=== PATIENT | male | born 1960 | race Caucasian/White ===

== ENCOUNTER 2019-12-06 10:07 | Inpatient (IN) | payer OTHER, SELFPAY ==
[2019-12-06] VITALS (7 sets, daily range): BP systolic 101–129; BP diastolic 63–74; PULSE 70–82; RESP 18–20; TEMP 36.2–36.7; O2SAT 97–99; BMI 44.2
--- NOTE | ~2019-12-06 | XR_ITS ---
EXAMINATION: XR chest 2V EXAM DATE: 12/06/2019 11:01 INDICATION: Swelling. Weakness. TECHNIQUE: Frontal and lateral projections of the chest obtained and reviewed. There is no prior cheng dy for comparison. FINDINGS: The lungs are clear. There are no pleural effusions. The cardiomediastinal silhouette is within normal limits. There is no pneumothorax suspected. The bones and soft tissues are unremarkab le. IMPRESSION: No acute cardiopulmonary findings. Reviewed, dictated and finalized at location B. COM FIELD TECHNICIAN
--- NOTE | 2019-12-06 10:26 | ED.GENADULT ---
HPI - General Adult General Chief complaint: Fall <Riaz Dick PA-C - Last Filed: 12/06/19 11:50> Stated complaint: WEAKNESS <Riaz Dick PA-C - Last Filed: 12/06/19 11:50> Time Seen by Provider: 12/06/19 10:10 <Riaz Dick PA-C - Last Filed: 12/06/19 11:50> Source: patient, family and EMS <Riaz Dick PA-C - Last Filed: 12/06/19 11:50> Mode of arrival: ambulatory <Riaz Dick PA-C - Last Filed: 12/06/19 11:50> Limitations: no limitations <Riaz Dick PA-C - Last Filed: 12/06/19 11:50> History of Present Illness HPI narrative: Patient is a 59-year-old male who presents after attempting to get up today to go to the restroom and falling forward patient has difficulty with ambulation secondary to chronic back and morbid obesity patient fell a week ago when his leg gave out patient notes that he has chronic pain to the lower back patient notes bruising and tenderness to the bilateral anterior knees patient noting minimal pain of the knees. Patient notes that he has difficulty with ambulation secondary to his chronic back pain and obesity patient denies head injury syncope loss of consciousness or any other complaints at this time and is resting comfortably in the room upon arrival in no distress <Riaz Dick PA-C - Last Filed: 12/06/19 11:50> Review of Systems Review of Systems: All systems reviewed & are unremarkable except as noted in HPI and below <Riaz Dick PA-C - Last Filed: 12/06/19 11:50> [facility] Past Medical History Medical History: Medical History (Updated 12/06/19 @ 11:47 by Riaz Dick PA-C) Hypertension Obesity <Riaz Dick PA-C - Last Filed: 12/06/19 11:50> Surgical History Surgical History: Surgical History History of orthopedic surgery <Riaz Dick PA-C - Last Filed: 12/06/19 11:50> Social History Social History: Social History Smoking status: Former smoker <Riaz Dick PA-C - Last Filed: 12/06/19 11:50> Exam Narrative: Exam Narrative: GENERAL: Well-appearing, obese, and in no acute distress. HEAD: Normocephalic, atraumatic. EYES: PERRLA and EOMI. ENT: Nares clear, no rhinorrhea or epistaxis. Mucous membranes moist. Oropharynx without tonsillar hypertrophy exudate or other lesions. Bilateral TMs pearly king nonbulging NECK: Supple. No adenopathy or masses. CHEST: Clear to auscultation. No respiratory distress. No wheezes rales or rhonchi HEART: Regular rate and rhythm. No murmur heard. Normal peripheral pulses. ABDOMEN: Soft, nontender, nondistended EXTREMITIES: Abrasions to the anterior bilateral knees. No midline cervical thoracic or lumbar tenderness. 2+ edema to the bilateral lower extremities SKIN: Warm, dry, no rash. NEURO: No focal deficits. Alert and oriented x3. Cranial nerves II through XII grossly intact. Neurovascularly intact PSYCH: Normal mood and affect. <Riaz Dick PA-C - Last Filed: 12/06/19 11:50> Course Course Emergency Course: Patient in the room in no distress aware of case findings treatment plan and diagnosis will be placed in hospital had oral and IV potassium replacement as well as magnesium which is the likely cause of his generalized weakness and falls <Riaz Dick PA-C - Last Filed: 12/06/19 11:50> HEAD OF SCIENCE/PA Physician Supervision For this encounter, I have reviewed the PA documentation, treatment plan and medical decision making: And I have had [id number] time with the patient. On exam heart is regular in rhythm without murmur, lungs clear all station bilaterally, the abdomen is soft nontender. Patient states he does have a history of daily alcohol use with beer that he stopped using proximally 1 week ago as he is trying to lose weight for his back surgery. Discussed need for admission in agreement at this
[2019-12-06 10:37] LABS: Basophils Absolute Auto 0.1 K/mm3 (0.0-0.1); Basophils Percent Auto 0.3 % (0.2-1.2); Eosinophils Percent Auto 0.1 % (0-4.4); Hematocrit 32.1 % (42.0-52.0); Hemoglobin 12.1 g/dL (14.0-18.0); Immature Granulocyte Percent A 0.7 % (0-0.5); Lymphocytes Absolute Auto 0.65 K/mm3 (0.9-3.2); Lymphocytes Percent Auto 4.4 % (18.3-44.2); Mean Corpuscular HGB Conc 37.7 g/dl (32-36); Mean Corpuscular Volume 90.2 fl (80-100); Mean Platelet Volume 8.3 fl (7.4-10.4); Monocytes Absolute Auto 1.3 K/mm3 (0.1-0.6); Monocytes Percent Auto 8.6 % (2.6-8.5); Neutrophils Absolute Auto 12.8 K/mm3 (1.3-6.7); Neutrophils Percent Auto 85.9 % (45.5-73.1); Platelet Count Result 286 k/mm3 (150-375); Red Blood Count 3.56 M/mm3 (4.6-6.20); Red Cell Distribution Width 11.9 % (11.5-14.5); White Blood Count 14.9 K/mm3 (4.5-10.0)
--- NOTE | 2019-12-06 11:05 | ECG_ITS ---
Measurements Intervals [place] Rate: 74 P: -10 MN: 146 QRS: 14 QRSD: 119 T: 29 QT: 422 QTc: 468 Interpretive Statements SINUS RHYTHM INTRAVENTRICULAR CONDUCTION DELAY BORDERLINE ECG Electronically Signed On 12-06-2019 20:04:14 FIELD SECRETARY by Juan Long D.O.
[2019-12-06 11:06] LABS: Alanine Aminotransferase 32 U/L (4-50); Albumin Level 3.4 g/dL (3.5-5.1); Alkaline Phosphatase 59 U/L (38-126); Aspartate Amino Transferase 29 U/L (17-59); Bilirubin,Total 1.4 mg/dL (0.2-1.3); Blood Urea Nitrogen 10 mg/dL (9-20); Calcium 8.7 mg/dL (8.4-10.2); Carbon Dioxide 28 mmol/L (22-30); Chloride 78 mmol/L (98-107); Estimated Glomerular Filt Rate > 60; Glucose 100 mg/dL (75-110); Potassium 2.5 mmol/L (3.4-5.0); Sodium 120 mmol/L (137-145)
[2019-12-06 11:20] LABS: Magnesium 1.5 mg/dL (1.6-2.3); Phosphorus 2.7 mg/dL (2.5-4.5)
[2019-12-06] MEDS: POTASSIUM CHLORIDE 20 MEQ PACKET (FOR LIQUID) 40 MEQ PO (11:32)
[2019-12-06] MEDS: MAGNESIUM SULF 2 GM/WATER 50ML 2 GM/50 ML BAG IVPB (11:40)
--- NOTE | 2019-12-06 13:56 | ADMGEN ---
This patient, Phoenix Huber, was admitted to 2 Medical Room 246-. Patient/family oriented to hospital policies and general routines including ID bracelet, bed and alarms, visiting hours, pain management, procedures, bathroom and other care routines, personal items, smoking policy, room service/diet, and visiting hours. Valuables list has been completed. Information on how to activate the Rapid Response Team has been discussed. Patient/Family are encouraged to report perceived risks to care and to ask questions if they do not understand what they are told or what they should do.
[2019-12-06 15:11] LABS: Add Urine Microscopic? NO; Appearance Urine Clear (Clear); Bilirubin Urine Negative (Negative); Blood Urine Negative (Negative); Color Urine Yellow (Yellow); Glucose Urine UA Negative (Negative); Ketones Urine Negative (Negative); Leukocyte Esterase Ur Negative LEU/UL (Negative); Nitrate Urine Negative (Negative); Protein Urine Negative (Negative); Specific Grav Ur 1.009 (1.001-1.035); Urobilinogen Urine Negative mg/dL (<2.0)
--- NOTE | 2019-12-06 19:00 | PM.IMHP ---
H&P: HPI History of Present Illness Chief complaint: Fall. Narrative: Phoenix Huber is a 59 year old male with hypertension and chronic back pain secondary to severe lumbar spondylosis and who presented to the emergency department via EMS from home for evaluation after a fall. He has chronic low back pain and for many years he has taken 10 milligrams of prednisone, 2 to 3 times per day. He was evaluated by a spine surgeon at [place] on November 22, 2019, and at that time was abruptly taken off of the prednisone and started on tramadol and gabapentin. In order to qualify for surgery, he was instructed that he needed to lose 50 pounds. He has since started the [employer] diet and has given up his 12 pack of beer a day drinking habit. It has been nearly 2 weeks since he stopped drinking and he denies ever having signs or symptoms of alcohol withdrawal. Unfortunately, his back pain seems to have worsened since stopping the steroids and he describes a constant sharp/shooting pain diffusely throughout his lower back radiating into the hips and occasionally down the legs. His left leg seems to be more affected, and in fact he notes that that leg gave out while walking a flight of stairs last Wednesday, causing him to fall forward. Since that time, his upper legs in particular have felt weak, he has been shaky, and this morning while getting up to use the restroom he had another fall due to his left leg giving out. He fell forward, scraping his knees, but sustained no injuries and denies head trauma and loss of consciousness. He denies feeling lightheaded and dizzy prior to the fall, stating it was simply mechanical fall. He denies lightheadedness and dizziness. His oral intake is at his baseline. He has not had nausea, vomiting, or diarrhea. Urine output has remained stable. He has not had headache or confusion. Review of Systems Review of Systems: Narrative: Twelve systems were reviewed with pertinent positives and negatives as per HPI. No recent cold or flu symptoms. He denies headache. No auditory or visual changes. He denies paresthesias. No chest pain or shortness of breath. He does have intermittent lower extremity edema and it sounds as though that has been gone going. He wakes up 3 to 4 times per night to use the restroom and other than that he seems to sleep pretty well. He has no history of sleep apnea and denies falling asleep throughout the day. No history of thyroid disease. Except as documented, all other systems were reviewed and are negative. [facility] Past Medical History Medical History (Updated 12/06/19 @ 18:44 by Jeanette Navarrete PA-C) Chronic back pain Hypertension Lumbar spondylosis Obesity Surgical History Surgical History (Updated 12/06/19 @ 20:24 by Jeanette Navarrete PA-C) History of orthopedic surgery Right knee surgery. Family History Family History Mother Diabetes mellitus Sibling Diabetes mellitus Liver failure Social History Social History (Updated 12/06/19 @ 20:25 by Jeanette Navarrete PA-C) Social History: The patient lives in [place] with his . They have 2 grown children. He works for a [employer], in the [employer] department. He designates, [employer], as his surrogate decision maker and he wishes to be a full code. He has a 20 pack year smoking history and quit several years ago. Prior to the last couple of weeks, he consumed almost a 12 pack of beer a night. No drug use. Smoking packs per day: 1 Smoking cigarettes per day: 20.0 Years smoked: 20 Smoking pack-years: 20.00 Spiritual care concerns: No Agree to blood products: Yes Meds Home Medications and Allergies Home Medications Medication Instructions Recorded Confirmed Type amlodipine 10 mg PO DAILY 12/06/19 12/06/19 History gabapentin 300 mg PO HS 12/06/19 12/06/19 History hydralazine 25 mg PO TID 12/06/19 12/06/19 History
[2019-12-06 19:31] LABS: Alanine Aminotransferase 33 U/L (4-50); Albumin Level 3.4 g/dL (3.5-5.1); Alkaline Phosphatase 67 U/L (38-126); Aspartate Amino Transferase 33 U/L (17-59); Bilirubin,Total 1.4 mg/dL (0.2-1.3); Blood Urea Nitrogen 12 mg/dL (9-20); Calcium 8.5 mg/dL (8.4-10.2); Carbon Dioxide 28 mmol/L (22-30); Chloride 78 mmol/L (98-107); Estimated CRCL calculation 160 ml/min; Estimated Glomerular Filt Rate > 60; Glucose 94 mg/dL (75-110); Magnesium 1.9 mg/dL (1.6-2.3); Phosphorus 2.6 mg/dL (2.5-4.5); Potassium 2.6 mmol/L (3.4-5.0); Sodium 118 mmol/L (137-145)
[2019-12-06 19:38] LABS: Iron 33 ug/dL (49-181)
[2019-12-06 19:47] LABS: Percent Iron Saturation 12 % (20-50)
[2019-12-06 20:21] LABS: Cortisol Random 7.84 ug/dL
[2019-12-06] MEDS: DEXAMETHASONE SOD PHOS INJ 4 MG/ML VIAL IV PUSH (20:30)
[2019-12-06 20:45] LABS: Sodium 119 mmol/L (137-145)
[2019-12-06] MEDS: FAMOTIDINE 20 MG/2 ML VIAL IV PUSH (21:16)
[2019-12-06] MEDS: GABAPENTIN 300 MG CAPSULE PO (21:16)
[2019-12-06 21:17] LABS: Cortisol Random 7.42 ug/dL
[2019-12-06 21:52] LABS: Creatinine Urine 36.3 mg/dL
[2019-12-06 21:53] LABS: Sodium Urine Random 22 meq/L
[2019-12-06 22:25] LABS: Cortisol 60 Minute 9.32 ug/dL
[2019-12-07] VITALS (12 sets, daily range): BP systolic 129–149; BP diastolic 59–71; PULSE 71–84; RESP 18–22; TEMP 36.3–36.8; O2SAT 94–98
[2019-12-07 01:03] LABS: Blood Urea Nitrogen 8 mg/dL (9-20); Calcium 8.8 mg/dL (8.4-10.2); Carbon Dioxide 28 mmol/L (22-30); Chloride 81 mmol/L (98-107); Estimated CRCL calculation 188 ml/min; Estimated Glomerular Filt Rate > 60; Glucose 120 mg/dL (75-110); Sodium 121 mmol/L (137-145)
[2019-12-07 03:15] LABS: Basophils Percent Auto 0.2 % (0.2-1.2); Hematocrit 32.4 % (42.0-52.0); Hemoglobin 12.1 g/dL (14.0-18.0); Immature Granulocyte Absolute 0.09 K/mm3 (0.00-0.031); Immature Granulocyte Percent A 1.1 % (0-0.5); Lymphocytes Absolute Auto 0.53 K/mm3 (0.9-3.2); Lymphocytes Percent Auto 6.6 % (18.3-44.2); Mean Corpuscular HGB Conc 37.3 g/dl (32-36); Mean Platelet Volume 8.4 fl (7.4-10.4); Monocytes Absolute Auto 0.3 K/mm3 (0.1-0.6); Monocytes Percent Auto 4.2 % (2.6-8.5); Neutrophils Absolute Auto 7.1 K/mm3 (1.3-6.7); Neutrophils Percent Auto 87.9 % (45.5-73.1); Platelet Count Result 272 k/mm3 (150-375); Red Blood Count 3.56 M/mm3 (4.6-6.20); Red Cell Distribution Width 11.9 % (11.5-14.5); White Blood Count 8.1 K/mm3 (4.5-10.0)
[2019-12-07 03:30] LABS: Blood Urea Nitrogen 7 mg/dL (9-20); Calcium 8.9 mg/dL (8.4-10.2); Carbon Dioxide 27 mmol/L (22-30); Chloride 81 mmol/L (98-107); Estimated CRCL calculation 229 ml/min; Estimated Glomerular Filt Rate > 60; Glucose 112 mg/dL (75-110); Magnesium 1.9 mg/dL (1.6-2.3); Phosphorus 2.8 mg/dL (2.5-4.5); Potassium 3.1 mmol/L (3.4-5.0); Sodium 121 mmol/L (137-145)
[2019-12-07 06:10] LABS: Sodium 123 mmol/L (137-145)
[2019-12-07] MEDS: hydrALAZINE HCL 25 MG TABLET PO ×3 (08:04→17:29)
[2019-12-07] MEDS: LOSARTAN POTASSIUM 100 MG TABLET PO (08:04)
[2019-12-07] MEDS: FAMOTIDINE 20 MG/2 ML VIAL IV PUSH ×2 (08:04→20:12)
[2019-12-07 09:28] LABS: Sodium 121 mmol/L (137-145)
[2019-12-07] MEDS: POTASSIUM CHLORIDE 20 MEQ TABLET 40 MEQ PO (10:41)
[2019-12-07 12:25] LABS: Sodium 121 mmol/L (137-145)
--- NOTE | 2019-12-07 13:00 | PM.IMPN ---
Progress Note: A&P Assessment and Plan (1) Generalized weakness: Code(s): R53.1 - Weakness Status: Acute Assessment and Plan: Result of multiple electrolyte derangements and chronic back pain. Continue PT/OT while correcting electrolytes as noted below. Appears to be doing well at this time. (2) Acute hyponatremia: Code(s): E87.1 - Hypo-osmolality and hyponatremia Status: Acute Assessment and Plan: Nephrology consulted and appreciate help. Continue fluid restriction. Sodium has now remained stable at 122. Will continue to follow. May be result of recent sudden abruption of oral prednisone. Did receive dose of IV dexamethasone on admission. Will follow. (3) Acute hypokalemia: Code(s): E87.6 - Hypokalemia Status: Acute Assessment and Plan: Potassium 3.1 today with oral replacement given. Will continue to follow and replace as needed. (4) Hypomagnesemia: Code(s): E83.42 - Hypomagnesemia Status: Acute Assessment and Plan: Magnesium improved to 1.9 after replacement yesterday. Will continue to follow. (5) Hypertension: Qualifiers: Hypertension type: essential hypertension Qualified Code(s): I10 - Essential (primary) hypertension Code(s): I10 - Essential (primary) hypertension Status: Acute Assessment and Plan: Blood pressure reviewed on 12/07/2019 and stable. Will continue to monitor on hydralazine, losartan and amlodipine. Will adjust treatment as needed. (6) Normocytic anemia: Code(s): D64.9 - Anemia, unspecified Status: Acute Assessment and Plan: Iron studies reviewed with iron deficiency noted. Some heWill start on oral iron. Hemoglobin stable at 12.1 again today. Will follow. (7) Chronic back pain: Qualifiers: Back pain laterality: unspecified Back pain location: back pain in unspecified location Qualified Code(s): M54.9 - Dorsalgia, unspecified; G89.29 - Other chronic pain Code(s): M54.9 - Dorsalgia, unspecified; G89.29 - Other chronic pain Status: Acute Assessment and Plan: Patient has been seen by spine surgeon. Was to have weaned off of prednisone but unfortunately abruptly discontinued. Will allow resumption of tramadol p.r.n.. Continue gabapentin. Will follow. (8) Obesity: Qualifiers: Body mass index: BMI 40.0-44.9 Obesity classification: adult class 3 (BMI >= 40) Obesity type: unspecified obesity type Serious obesity comorbidity presence: without serious comorbidity Qualified Code(s): E66.01 - Morbid (severe) obesity due to excess calories; Z68.41 - Body mass index (BMI) 40.0-44.9, adult Code(s): E66.9 - Obesity, unspecified Status: Acute Assessment and Plan: Contributing to other issues. Healthy lifestyle encouraged. (9) DVT prophylaxis: Code(s): Z29.9 - Encounter for prophylactic measures, unspecified Status: Acute Assessment and Plan: SCDs. Time Spent With Patient Time with patient: 15 - 25 minutes Subjective Date/time seen: 12/07/19 13:00 Interval history: Date of Service: 12/07/2019. Admitted with generalized weakness, hyponatremia, hypokalemia. Known problems with chronic back pain. Has not been up today but was dizzy yesterday. No headache. No chest pain. No shortness of breath. No abdominal pain. No nausea or vomiting. Review of Systems Review of Systems: Narrative: Feeling better. Constitutional: Constitutional: Denies chills and Denies fever(s) ENT: Denies nasal congestion and Denies nasal discharge Cardiovascular: Cardiovascular: Denies chest pain Respiratory: Respiratory: Denies dyspnea Gastrointestinal: Gastrointestinal: Denies abdominal pain, Denies nausea and Denies vomiting Genitourinary: Genitourinary: Denies hematuria, Denies dysuria and Denies urinary frequency Musculoskeletal: Musculoskeletal: Reports back pain (chronic) Integumentary/Breas
[2019-12-07 15:14] LABS: Sodium 123 mmol/L (137-145)
--- NOTE | 2019-12-07 16:49 | PM.CNNEP ---
Assessment and Plan Assessment and plan (1) Hyponatremia: Code(s): E87.1 - Hypo-osmolality and hyponatremia Status: Acute (2) Hypokalemia: Code(s): E87.6 - Hypokalemia Status: Acute (3) Hypomagnesemia: Code(s): E83.42 - Hypomagnesemia Status: Acute (4) Chronic back pain: Qualifiers: Back pain laterality: unspecified Back pain location: back pain in unspecified location Qualified Code(s): M54.9 - Dorsalgia, unspecified; G89.29 - Other chronic pain Code(s): M54.9 - Dorsalgia, unspecified; G89.29 - Other chronic pain Status: Acute (5) Hypertension: Qualifiers: Hypertension type: essential hypertension Qualified Code(s): I10 - Essential (primary) hypertension Code(s): I10 - Essential (primary) hypertension Status: Acute (6) Obesity: Qualifiers: Body mass index: BMI 40.0-44.9 Obesity classification: adult class 3 (BMI >= 40) Obesity type: unspecified obesity type Serious obesity comorbidity presence: without serious comorbidity Qualified Code(s): E66.01 - Morbid (severe) obesity due to excess calories; Z68.41 - Body mass index (BMI) 40.0-44.9, adult Code(s): E66.9 - Obesity, unspecified Status: Acute Assessment and Plan: . Additional Plan Phoenix has hyponatremia, hypokalemia, and hypomagnesemia as evidence by his labs on admission. His hypomagnesemia and hypokalemia are being treated with aggressive repletion and I am unclear as to the exact etiology of these to deficiencies by suspect his recent change in diet with regard to attempts at weight loss may have potentially instigated this issue. His hyponatremia is a little bit more concerning. As I mentioned, he has several risk factors for hyponatremia in general including chronic pain management issues, excessive alcohol intake, and chronic steroid use with his most recent abrupt withdrawal of such therapy. For further evaluation of this issue, of follow up on his urine electrolytes and also check a TSH, SPEP, and UPEP. He has already had a cortisol level done and cortisol stimulation test results seem equivocal and given there were done fairly late in the evening, I am unclear the accuracy of the results. Hence, I will repeat the stimulation test tomorrow morning to assess of when he needs reintroduction of steroid therapy. Despite the fluid restriction he was started on, his sodium level is only mildly improved so lb little bit more aggressive with his free water restriction and change it to 1200 cc in 24 hr. At this point, I do not think he needs 3% saline or any other aggressive intervention since his neurological status is stable and he is otherwise asymptomatic. I will continue follow patient with you while he may as hospitalized to make further recommendations during his hospital course Thank you for allowing me present in the care this patient. History of Present Illness Reason for Consult Consult date: 12/07/19 Reason for consult: hyponatremia Chief Complaint Chief complaint: Fall. History of Present Illness Narrative: The patient is a 59 year old male with a past medical history as outlined below who presented to the [facility] ER from home for evaluation after a fall. He has chronic low back pain for several years and apparently was taking prednisone at least 2 to 3 times per day as a treatment for this. He was recently seen/evaluated by a spine surgeon at [facility] and his steroids were discontinued. He was told that needed to loose weight to qualify for surgery as well. He has since discontinued alcohol intake which was quite significant (drinks 12 pack of beer a day). Unfortunately, his back pain seems to have worsened since stopping the steroids and he describes a constant sharp/shooting pain diffusely throughout his lower back radiating into the hips and occasionally down the legs. On the morning of admission, while getting up to use the re
[2019-12-07 17:48] LABS: Sodium 122 mmol/L (137-145)
[2019-12-07] MEDS: AMLODIPINE BESYLATE 5 MG TABLET 10 MG PO (20:12)
[2019-12-07] MEDS: GABAPENTIN 300 MG CAPSULE PO (20:12)
[2019-12-08] VITALS (11 sets, daily range): BP systolic 117–134; BP diastolic 54–66; PULSE 70–88; RESP 15–20; TEMP 36.1–37.1; O2SAT 95–97
[2019-12-08] MEDS: COSYNTROPIN 0.25 MG/ML VIAL IV PUSH (04:59)
[2019-12-08 06:37] LABS: Blood Urea Nitrogen 11 mg/dL (9-20); Calcium 8.6 mg/dL (8.4-10.2); Carbon Dioxide 30 mmol/L (22-30); Chloride 84 mmol/L (98-107); Estimated CRCL calculation 229 ml/min; Estimated Glomerular Filt Rate > 60; Glucose 90 mg/dL (75-110); Magnesium 1.8 mg/dL (1.6-2.3); Potassium 2.5 mmol/L (3.4-5.0); Sodium 125 mmol/L (137-145)
[2019-12-08] MEDS: hydrALAZINE HCL 25 MG TABLET PO ×3 (08:17→17:15)
[2019-12-08] MEDS: FERROUS SULFATE 324 MG TABLET PO (08:18)
[2019-12-08] MEDS: FAMOTIDINE 20 MG/2 ML VIAL IV PUSH ×2 (08:18→20:35)
[2019-12-08] MEDS: POTASSIUM CHLORIDE 20 MEQ TABLET.ER 40 MEQ PO (08:18)
[2019-12-08] MEDS: LOSARTAN POTASSIUM 100 MG TABLET PO (08:24)
--- NOTE | 2019-12-08 08:47 | PCPTNOTE ---
Attempted therapy, Pt stated he works better in the afternoon. Will attempt again after lunch.
--- NOTE | 2019-12-08 09:28 | PM.PNNEP ---
Progress Note: A&P Assessment and Plan (1) Hyponatremia: Code(s): E87.1 - Hypo-osmolality and hyponatremia Status: Acute Assessment and Plan: Patient has hyponatremia. Urine electrolytes are non pre renal. TSH is okay. Cortrosyn stim level was okay since there was a delta of 9. Chest x-ray is clear No obvious sign of cancer. He was on hydrochlorothiazide and this is now stopped. We can check an MRI of the brain if things do not get better soon.. (2) Hypokalemia: Code(s): E87.6 - Hypokalemia Status: Acute Assessment and Plan: Getting some potassium now. He was on hydrochlorothiazide. (3) Hypomagnesemia: Code(s): E83.42 - Hypomagnesemia Status: Acute Assessment and Plan: Repeat this. (4) Chronic back pain: Qualifiers: Back pain location: back pain in unspecified location Back pain laterality: unspecified Qualified Code(s): M54.9 - Dorsalgia, unspecified; G89.29 - Other chronic pain Code(s): M54.9 - Dorsalgia, unspecified; G89.29 - Other chronic pain Status: Acute Assessment and Plan: He is on tramadol and nonsteroidal anti-inflammatory agents for this. (5) Hypertension: Qualifiers: Hypertension type: essential hypertension Qualified Code(s): I10 - Essential (primary) hypertension Code(s): I10 - Essential (primary) hypertension Status: Acute Assessment and Plan: (6) Obesity: Qualifiers: Obesity type: unspecified obesity type Obesity classification: adult class 3 (BMI >= 40) Serious obesity comorbidity presence: without serious comorbidity Body mass index: BMI 40.0-44.9 Qualified Code(s): E66.01 - Morbid (severe) obesity due to excess calories; Z68.41 - Body mass index (BMI) 40.0-44.9, adult Code(s): E66.9 - Obesity, unspecified Status: Acute Assessment and Plan: . Subjective Date/time seen: 12/08/19 09:28 Interval history: Son is in the room patient is alert. He feels about the same today No chest pain or shortness of breath. He is on his fluid restriction. Review of Systems Cardiovascular: Cardiovascular: Reports no additional cardiovascular complaints Respiratory: Respiratory: Reports no additional respiratory complaints Gastrointestinal: Gastrointestinal: Reports no additional gastrointestinal complaints Genitourinary: Genitourinary: Reports no additional male genitourinary complaints Exam Narrative: Exam Narrative: Well developed well-nourished in no acute distress Lungs clear Heart regular without rub Abdomen bowel sounds positive soft nontender Extremities no edema Skin no rash Objective Data Vital Signs Vital Signs: Vital Signs - 24 hr 12/07/19 10:00 12/07/19 12:00 12/07/19 14:00 Temperature 36.8 C 36.6 C Pulse Rate 81 77 83 Respiratory Rate 20 20 Blood Pressure 132/71 134/68 Pulse Oximetry 96 94 12/07/19 16:00 12/07/19 18:00 12/07/19 20:00 Temperature 36.7 C Pulse Rate 78 81 71 Respiratory Rate 20 20 Blood Pressure 132/62 Pulse Oximetry 96 96 12/07/19 22:00 12/08/19 00:00 12/08/19 02:00 Temperature 36.3 C L 36.1 C L Pulse Rate 76 70 82 Respiratory Rate 22 H 20 Blood Pressure 149/59 H 130/54 L Pulse Oximetry 98 95 12/08/19 04:00 12/08/19 06:00 Temperature 36.4 C Pulse Rate 71 76 Respiratory Rate 20 Blood Pressure 134/57 L Pulse Oximetry 96 Intake/Output Intake/Output: Intake & Output 12/05/19 12/06/19 12/07/19 12/08/19 23:59 23:59 23:59 23:59 Intake Total 950 2580 300 Output Total 800 2700 1400 Balance 150 -120 -1100 Meds/Results Medications: Active Medications Generic Name Dose Route Start Last Admin Trade Name Sharanq PRN Reason Stop Dose Admin Amlodipine Besylate 10 mg 12/07/19 21:00 12/07/19 20:12 Norvasc PO 10 mg HS ZOE Administration Famotidine 20 mg 12/06/19 21:00 12/08/19 08:18 Pepcid Iv IV PUSH 20 mg Q12HR S
[2019-12-08] MEDS: TRAMADOL HCL 50 MG TABLET PO ×2 (10:50→20:39)
--- NOTE | 2019-12-08 13:10 | PM.IMPN ---
Progress Note: A&P Assessment and Plan (1) Generalized weakness: Code(s): R53.1 - Weakness Status: Acute Assessment and Plan: Result of multiple electrolyte derangements and chronic back pain. Continue PT/OT while correcting electrolytes as noted below. Suspect increased weakness today result of electrolyte abnormalities as noted below. Will continue to follow. (2) Acute hyponatremia: Code(s): E87.1 - Hypo-osmolality and hyponatremia Status: Acute Assessment and Plan: Nephrology consulted and appreciate help. Continue fluid restriction. May be result of recent sudden abruption of oral prednisone. Did receive dose of IV dexamethasone on admission. Additional workup in process. Sodium is better at 125 today. Will continue to follow. (3) Acute hypokalemia: Code(s): E87.6 - Hypokalemia Status: Acute Assessment and Plan: Potassium decreased to 2.5 this morning. IV and oral replacement given. Repeat potassium 3.6 this afternoon with additional oral replacement given. Will continue to monitor and adjust replacement as needed. Telemetry reviewed on 12/08/2019 with sinus rhythm. Will leave telemetry in place with low potassium this morning. Hopefully can discontinue telemetry tomorrow. (4) Hypomagnesemia: Code(s): E83.42 - Hypomagnesemia Status: Acute Assessment and Plan: Magnesium 1.8 today with no replacement given. Will recheck in a.m.. Replace as needed. (5) Hypertension: Qualifiers: Hypertension type: essential hypertension Qualified Code(s): I10 - Essential (primary) hypertension Code(s): I10 - Essential (primary) hypertension Status: Acute Assessment and Plan: Blood pressure reviewed on 12/08/2019 and remains stable. Will continue to monitor on hydralazine, losartan and amlodipine. Will adjust treatment as needed. (6) Normocytic anemia: Code(s): D64.9 - Anemia, unspecified Status: Acute Assessment and Plan: Iron studies reviewed with iron deficiency noted. Now on oral iron replacement. Hemoglobin stable at 12.1 on 12/07/2019. Will follow periodically. (7) Chronic back pain: Qualifiers: Back pain laterality: unspecified Back pain location: back pain in unspecified location Qualified Code(s): M54.9 - Dorsalgia, unspecified; G89.29 - Other chronic pain Code(s): M54.9 - Dorsalgia, unspecified; G89.29 - Other chronic pain Status: Acute Assessment and Plan: Patient has been seen by spine surgeon. Was to have weaned off of prednisone but unfortunately abruptly discontinued. Continue tramadol p.r.n.. Continue gabapentin. Will follow. (8) Obesity: Qualifiers: Body mass index: BMI 40.0-44.9 Obesity classification: adult class 3 (BMI >= 40) Obesity type: unspecified obesity type Serious obesity comorbidity presence: without serious comorbidity Qualified Code(s): E66.01 - Morbid (severe) obesity due to excess calories; Z68.41 - Body mass index (BMI) 40.0-44.9, adult Code(s): E66.9 - Obesity, unspecified Status: Acute Assessment and Plan: Contributing to other issues. Healthy lifestyle encouraged. (9) DVT prophylaxis: Code(s): Z29.9 - Encounter for prophylactic measures, unspecified Status: Acute Assessment and Plan: SCDs. Time Spent With Patient Time with patient: 15 - 25 minutes Subjective Date/time seen: 12/08/19 13:10 Interval history: Date of Service: 12/08/2019. Admitted with generalized weakness, hyponatremia, hypokalemia. Known problems with chronic back pain. Does not feel as good as yesterday. General malaise. No headache or dizziness. No chest pain. No shortness of breath. Back pain tolerable. Review of Systems Constitutional: Constitutional: Denies chills, Denies fever(s) and Reports malaise ENT: Denies nasal congestion and Denies nasal discharge Cardiovascular: Cardiovascul
[2019-12-08 13:58] LABS: Potassium 3.6 mmol/L (3.4-5.0)
--- NOTE | 2019-12-08 14:50 | PCPTNOTE ---
Attempted therapy again, Pt declined treatment. Pt stated he just finished with OT and was really sore. Therapist explained the importance of therapy. Pt agreed but said he was in too much pain.
[2019-12-08] MEDS: POTASSIUM CHLORIDE 20 MEQ TABLET 40 MEQ PO (17:15)
[2019-12-08] MEDS: GABAPENTIN 300 MG CAPSULE PO (20:35)
[2019-12-08] MEDS: AMLODIPINE BESYLATE 5 MG TABLET 10 MG PO (20:35)
[2019-12-09] VITALS (8 sets, daily range): BP systolic 125–134; BP diastolic 60–73; PULSE 68–85; RESP 16; TEMP 36.2–36.4; O2SAT 94–98
[2019-12-09 06:12] LABS: Albumin Level 3.3 g/dL (3.5-5.1); Blood Urea Nitrogen 12 mg/dL (9-20); Calcium 8.8 mg/dL (8.4-10.2); Carbon Dioxide 29 mmol/L (22-30); Chloride 88 mmol/L (98-107); Estimated CRCL calculation 188 ml/min; Estimated Glomerular Filt Rate > 60; Glucose 86 mg/dL (75-110); Magnesium 1.7 mg/dL (1.6-2.3); Potassium 3.4 mmol/L (3.4-5.0); Sodium 128 mmol/L (137-145)
[2019-12-09] MEDS: FAMOTIDINE 20 MG/2 ML VIAL IV PUSH (08:10)
[2019-12-09] MEDS: FERROUS SULFATE 324 MG TABLET PO (08:10)
[2019-12-09] MEDS: TRAMADOL HCL 50 MG TABLET PO (08:10)
[2019-12-09] MEDS: hydrALAZINE HCL 25 MG TABLET PO ×2 (08:11→12:23)
[2019-12-09] MEDS: POTASSIUM CHLORIDE 20 MEQ TABLET.ER 40 MEQ PO (08:11)
[2019-12-09] MEDS: LOSARTAN POTASSIUM 100 MG TABLET PO (08:11)
--- NOTE | 2019-12-09 08:52 | PM.IMPN ---
Progress Note: A&P Assessment and Plan (1) Generalized weakness: Code(s): R53.1 - Weakness Status: Acute Assessment and Plan: Result of multiple electrolyte derangements and chronic back pain. Continue PT/OT while correcting electrolytes as noted below. Suspect increased weakness today result of electrolyte abnormalities as noted below. Improved today. Possible discharge later today pending repeat blood work. (2) Acute hyponatremia: Code(s): E87.1 - Hypo-osmolality and hyponatremia Status: Acute Assessment and Plan: Nephrology consulted and appreciate help. Continue fluid restriction. May be result of recent sudden abruption of oral prednisone. Did receive dose of IV dexamethasone on admission. Additional workup in process and negative thus far. Sodium up to [address] this [address] Discuss[address] with Dr. Dumont and then patient. Will recheck BMP at noon. If electrolytes holding, probable discharge later today. If any concerns and recheck BMP, will not discharge today and continue treatment in hospital. (3) Acute hypokalemia: Code(s): E87.6 - Hypokalemia Status: Acute Assessment and Plan: Potassium low end of normal at 3.4 today. Did receive IV and oral replacement yesterday. Now on scheduled oral replacement but will increase to b.i.d.. Telemetry reviewed on 12/09/2019 with sinus rhythm and will discontinue. Continue to monitor potassium. (4) Hypomagnesemia: Code(s): E83.42 - Hypomagnesemia Status: Acute Assessment and Plan: Magnesium 1.7 today. Will give oral replacement. Continue to monitor and replace as needed. (5) Hypertension: Qualifiers: Hypertension type: essential hypertension Qualified Code(s): I10 - Essential (primary) hypertension Code(s): I10 - Essential (primary) hypertension Status: Acute Assessment and Plan: Blood pressure reviewed on 12/09/2019. Presently stable. Home HCTZ discontinued on admission as probably contributing to electrolyte abnormalities. Will continue to monitor on hydralazine, losartan and amlodipine. Will adjust treatment as needed. (6) Normocytic anemia: Code(s): D64.9 - Anemia, unspecified Status: Acute Assessment and Plan: Iron studies reviewed with iron deficiency noted. Now on oral iron replacement and will continue. Hemoglobin stable at 12.1 on 12/07/2019. Will follow periodically. (7) Chronic back pain: Qualifiers: Back pain laterality: unspecified Back pain location: back pain in unspecified location Qualified Code(s): M54.9 - Dorsalgia, unspecified; G89.29 - Other chronic pain Code(s): M54.9 - Dorsalgia, unspecified; G89.29 - Other chronic pain Status: Acute Assessment and Plan: Patient has been seen by spine surgeon. Was to have weaned off of prednisone but unfortunately abruptly discontinued. Presently stable. continue tramadol p.r.n.. Continue gabapentin. Will follow. (8) Obesity: Qualifiers: Body mass index: BMI 40.0-44.9 Obesity classification: adult class 3 (BMI >= 40) Obesity type: unspecified obesity type Serious obesity comorbidity presence: without serious comorbidity Qualified Code(s): E66.01 - Morbid (severe) obesity due to excess calories; Z68.41 - Body mass index (BMI) 40.0-44.9, adult Code(s): E66.9 - Obesity, unspecified Status: Acute Assessment and Plan: Contributing to other issues. Healthy lifestyle encouraged. (9) DVT prophylaxis: Code(s): Z29.9 - Encounter for prophylactic measures, unspecified Status: Acute Assessment and Plan: SCDs. Time Spent With Patient Time with patient: 15 - 25 minutes Subjective Date/time seen: 12/09/19 08:52 Interval history: Date of Service: 12/09/2019. Admitted with generalized weakness, hyponatremia, hypokalemia. Known problems with chronic back pain. Feels better today. No headache or dizziness. N
--- NOTE | 2019-12-09 09:10 | PM.PNNEP ---
Progress Note: A&P Assessment and Plan (1) Hyponatremia: Code(s): E87.1 - Hypo-osmolality and hyponatremia Status: Acute Assessment and Plan: Patient has hyponatremia. Urine electrolytes are non pre renal. TSH is okay. Cortrosyn stim level was okay since there was a delta of 9. Chest x-ray is clear No obvious sign of cancer. He was on hydrochlorothiazide and this is now stopped. the sodium continues to improve. I think this is all the hydrochlorothiazide plus his heavy drinking. He drinks 12 cans of beer per day at least. if he takes hydrochlorothiazide and drinks that much of any fluid it will probably drive the sodium level down. I advised him to stay cut back on the drinking to just 2 beers per day. He thinks he will have to just completely stop. He can stay off the hydrochlorothiazide for now. Follow the sodium as an outpatient. If it completely corrects then back off on the fluid restriction. If it stays normal then were fine. If the sodium drops he will Need more evaluation. if the blood pressure rises he will need more blood pressure meds. If he is still able to stay off the alcohol then hydrochlorothiazide might be attempted again. (2) Hypokalemia: Code(s): E87.6 - Hypokalemia Status: Acute Assessment and Plan: Getting some potassium now. He was on hydrochlorothiazide. This probably cause total body potassium depletion (3) Hypomagnesemia: Code(s): E83.42 - Hypomagnesemia Status: Acute Assessment and Plan: Repeat Level was fine. (4) Chronic back pain: Qualifiers: Back pain location: back pain in unspecified location Back pain laterality: unspecified Qualified Code(s): M54.9 - Dorsalgia, unspecified; G89.29 - Other chronic pain Code(s): M54.9 - Dorsalgia, unspecified; G89.29 - Other chronic pain Status: Acute Assessment and Plan: He is on tramadol and nonsteroidal anti-inflammatory agents for this. (5) Hypertension: Qualifiers: Hypertension type: essential hypertension Qualified Code(s): I10 - Essential (primary) hypertension Code(s): I10 - Essential (primary) hypertension Status: Acute Assessment and Plan: This is well controlled now. (6) Obesity: Qualifiers: Obesity type: unspecified obesity type Obesity classification: adult class 3 (BMI >= 40) Serious obesity comorbidity presence: without serious comorbidity Body mass index: BMI 40.0-44.9 Qualified Code(s): E66.01 - Morbid (severe) obesity due to excess calories; Z68.41 - Body mass index (BMI) 40.0-44.9, adult Code(s): E66.9 - Obesity, unspecified Status: Acute Assessment and Plan: . Subjective Date/time seen: 12/09/19 09:10 Interval history: patient is alert. He feels about the same today No chest pain or shortness of breath. He is on his fluid restriction. Review of Systems Cardiovascular: Cardiovascular: Reports no additional cardiovascular complaints Respiratory: Respiratory: Reports no additional respiratory complaints Gastrointestinal: Gastrointestinal: Reports no additional gastrointestinal complaints Genitourinary: Genitourinary: Reports no additional male genitourinary complaints Exam Narrative: Exam Narrative: Well developed well-nourished in no acute distress Lungs clear to auscultation Heart regular without rub Abdomen bowel sounds positive soft nontender Extremities no edema Skin no rash Objective Data Vital Signs Vital Signs: Vital Signs - 24 hr 12/08/19 10:00 12/08/19 12:00 12/08/19 14:00 Temperature 37.1 C 37.0 C Pulse Rate 74 71 88 Respiratory Rate 15 17 Blood Pressure 118/61 121/66 Pulse Oximetry 95 97 12/08/19 16:00 12/08/19 18:35 12/08/19 20:00 Temperature 37.1 C Pulse Rate 84 76 75 Respiratory Rate 18 Blood Pressure 117/56 L Pulse Oximetry 97 12/08/19 21:27 12/09/19 00:00 12/09/19 02:00 Temp
[2019-12-09] MEDS: MAGNESIUM OXIDE 400 MG TABLET PO (09:36)
[2019-12-09] MEDS: DOCUSATE SODIUM 100 MG CAPSULE PO (09:36)
[2019-12-09 12:14] LABS: Blood Urea Nitrogen 15 mg/dL (9-20); Calcium 9.4 mg/dL (8.4-10.2); Carbon Dioxide 30 mmol/L (22-30); Chloride 87 mmol/L (98-107); Estimated CRCL calculation 139 ml/min; Estimated Glomerular Filt Rate > 60; Glucose 108 mg/dL (75-110); Potassium 4.1 mmol/L (3.4-5.0); Sodium 130 mmol/L (137-145)
--- NOTE | 2019-12-09 20:04 | PM.DS ---
DS: Diagnosis Admitting Diagnosis Admitting Diagnosis: Weakness Discharge Diagnosis (1) Generalized weakness: Code(s): R53.1 - Weakness Status: Acute (2) Acute hyponatremia: Code(s): E87.1 - Hypo-osmolality and hyponatremia Status: Acute (3) Acute hypokalemia: Code(s): E87.6 - Hypokalemia Status: Acute (4) Hypomagnesemia: Code(s): E83.42 - Hypomagnesemia Status: Acute (5) Hypertension: Qualifiers: Hypertension type: essential hypertension Qualified Code(s): I10 - Essential (primary) hypertension Code(s): I10 - Essential (primary) hypertension Status: Acute (6) Normocytic anemia: Code(s): D64.9 - Anemia, unspecified Status: Acute (7) Chronic back pain: Qualifiers: Back pain laterality: unspecified Back pain location: back pain in unspecified location Qualified Code(s): M54.9 - Dorsalgia, unspecified; G89.29 - Other chronic pain Code(s): M54.9 - Dorsalgia, unspecified; G89.29 - Other chronic pain Status: Acute (8) Obesity: Qualifiers: Body mass index: BMI 40.0-44.9 Obesity classification: adult class 3 (BMI >= 40) Obesity type: unspecified obesity type Serious obesity comorbidity presence: without serious comorbidity Qualified Code(s): E66.01 - Morbid (severe) obesity due to excess calories; Z68.41 - Body mass index (BMI) 40.0-44.9, adult Code(s): E66.9 - Obesity, unspecified Status: Acute DS: Summary Hospital Course Reason for hospitalization: Fall. Hospital Course: Date of Service of Discharge: December 09, 2019. History of Present Illness: Patient is a pleasant 59-year-old gentleman with known hypertension and chronic back pain secondary to severe lumbar spondylosis who presented to the emergency room by EMS from home for evaluation after a fall. He does have chronic low back pain and for many years has been taking 10 mg of prednisone 2-3 times per day. He was recently evaluated by spine surgeon at [facility] on November 22, 2019. At that time he was abruptly taken off his prednisone and started on tramadol along with gabapentin. Patient was instructed by the neurosurgeon that he would need to lose 50 lb prior to considering any surgery. He has been trying to lose weight using the [employer] diet. He has also given up his 12 pack of beer a day drinking habit. Last echo stark it drink 2 weeks earlier. No signs of withdrawal. Unfortunately, his back pain has worsened since stopping the steroids. He describes a constant sharp/shooting pain diffusely throughout his lower back radiating into the hips and occasionally down the legs. His left leg seems to be more affected. He reports his left leg gave out while walking a flight of stairs last Wednesday causing him to fall forward. On the morning of presentation he had another fall while getting up to use the bathroom with the left leg giving out. He did fall forward scraping his knees but no other injuries particularly no head trauma or loss of consciousness. Patient did not feel lightheaded or dizzy prior to the fall. No chest pain or shortness of breath. In the emergency room, he was noted to have multiple electrolyte disturbances including hyponatremia hypokalemia and hypo magnesemia. As result, he was admitted for further evaluation and treatment. Course in Hospital: On admission, patient was placed on the medical floor with telemetry where he remained for the duration of his stay. Sodium was low at 118, potassium 2.5 and magnesium 1.5. He was placed on a fluid restriction of 1200 cc per day. Home hydrochlorothiazide was held. Nephrology was consulted with additional evaluation initiated but no significant abnormalities found. Hyponatremia was felt to be multifactorial and suspicious as being related to the recent abrupt stopping of prednisone. He was given dose of IV dexamethasone upon admission but no further steroids. Sodium was c
[2019-12-10 04:16] LABS: Osmolality, Urine 166 mOsm/kg (50-1200)
[2019-12-12 00:49] LABS: Albumin 3.2 g/dL (3.8-4.8); Alpha 1 Globulin 0.5 g/dL (0.2-0.3); Alpha 2 Globulin 0.8 g/dL (0.5-0.9); Beta 1 Globulin 0.4 g/dL (0.4-0.6); Gamma Globulin 0.5 g/dL (0.8-1.7); Protein, Total 5.6 g/dL (6.1-8.1)
[2019-12-12 20:59] LABS: Creatinine, Random Urine 110 mg/dL (20-320); Total Protein/Creatinine Ratio 109 mg/g creat (22-128)
== END 2019-12-09 16:15 | disposition home health service (06) | DRG 641 ==
LOC: ANHED 11:53 → ANH2MED 18:40
PROVIDERS: Emergency Medicine Emergency Medical Services; Internal Medicine Nephrology; Physician Assistant; Admitting Provider Internal Medicine; Emergency Provider Emergency Medicine; PCP Internal Medicine; Visit Provider Hospitalist
DX: E87.1 Hypo-osmolality and hyponatremia (principal); Z68.41 Body mass index [BMI] 40.0-44.9, adult; I10 Essential (primary) hypertension; M54.9 Dorsalgia, unspecified; G89.29 Other chronic pain; M47.816 Spondylosis without myelopathy or radiculopathy, lumbar region; E66.01 Morbid (severe) obesity due to excess calories; E87.6 Hypokalemia; E83.42 Hypomagnesemia; T50.2X5A Adverse effect of carbonic-anhydrase inhibitors, benzothiadiazides and other diuretics, initial encounter; D50.9 Iron deficiency anemia, unspecified
CPT/HCPCS: 36415; 71046; 80048; 80053; 80069; 81003; 82088; 82533; 82570; 82607; 82728; 82746; 83540; 83550; 83735; 83930; 83935; 84100; 84132; 84155; 84156; 84165; 84166; 84244; 84295; 84300; 84443; 85025; 93005; 96365; 96375; 97110; 97161; 97165; 97535; 99285; A9270; J0131; J0834; J1100; J3475; J3480

== ENCOUNTER 2020-10-30 13:07 | Emergency (ER) | payer OTHER, SELFPAY ==
[2020-10-30] VITALS (15 sets, daily range): BP systolic 128–161; BP diastolic 73–87; PULSE 99–110; RESP 17–28; TEMP 36.3; O2SAT 95–97
--- NOTE | ~2020-10-30 | XR_ITS ---
XR chest 2V DATE: 10/30/2020 13:26 INDICATION: Shortness of breath. Fluid buildup. TECHNIQUE: PA and lateral views COMPARISON: 12/06/2019 2 view chest FINDINGS: There is nearly complete opacification of the left hemithorax, with residual aeration mainl y at the left apex. This is likely due to a huge left pleural effusion, with compressive left lung a telectasis. There is no right pleural effusion. The right lung is normally aerated and clear of infiltrate or consolidation. Heart size is not optimally evaluated due to silhouette sign, obliterating the left cardiac margin. There is aortic arch calcification. There is prominent dextroscoliosis of the thoracic spine and levoscoliosis of the lumbar spine. IMPRESSION: Huge left pleural effusion with compressive left lung atelectasis Reviewed, dictated and finalized at location B. RVISOR TRAIN OPERATIONS
--- NOTE | ~2020-10-30 | US_ITS ---
EXAMINATION: US thoracentesis DATE: 10/30/2020 15:32 INDICATION: pleural effusion TECHNIQUE: The procedure and its risks, benefits, and alternatives were discussed with the patient. P otential risks discussed included bleeding, infection, and pneumothorax. The patient understood the r isks and agreed to proceed. The skin was prepped and draped in sterile fashion. 1% lidocaine was used for local anesthesia. Under ultrasound guidance, a 5 Fr catheter with trochar was advanced into the left pleural effusion. Fluid was aspirated. The catheter was removed, and a dressing was applied. The re were no immediate complications. FINDINGS: Ultrasound images demonstrate a left pleural effusion and the catheter within the fluid. IMPRESSION: 1. Successful ultrasound-guided thoracentesis yielding 1000 mL of opaque, allan fluid. Reviewed, dictated and finalized at location A. ONOLOGIST
--- NOTE | ~2020-10-30 | XR_ITS ---
EXAMINATION: [id number] DATE: 10/30/2020 15:32 INDICATION: Left pleural effusion status post thoracentesis. TECHNIQUE: A single frontal view of the chest was obtained. COMPARISON: Chest single view at 1:20 PM FINDINGS: There is a large left pleural effusion. There are airspace opacities in left mid and lower lung zones. No pneumothorax. The heart size is obscured. IMPRESSION: 1. Large left pleural effusion with improvement status post thoracentesis. 2. Airspace opacities in left mid and lower lung zones, consistent with atelectasis versus pneumonia. Reviewed, dictated and finalized at location A. NOLOGY DIRECTOR IMPRESSION: 1. Large left pleural effusion with improvement status post thoracentesis. 2. Airspace opacities in left mid and lower lung zones, consistent with atelect asis versus pneumonia.
--- NOTE | 2020-10-30 13:15 | ECG_ITS ---
Measurements Intervals [place] Rate: 111 P: -7 IN: 92 QRS: 17 QRSD: 113 T: 135 QT: 325 QTc: 443 Interpretive Statements SINUS TACHYCARDIA WITH SHORT IN INTERVAL INTRAVENTRICULAR CONDUCTION DELAY BORDERLINE ST-T WAVE ABNORMALITY- DIFFUSE LEADS ABNORMAL ECG Electronically Signed On 10-30-2020 13:28:01 BELLOWS FILLER by Juan Long D.O.
--- NOTE | 2020-10-30 13:23 | ED.SOB ---
HPI - SOB/Dyspnea General Chief Complaint: Shortness of Breath/Dyspnea Stated Complaint: may need lung drained Time Seen by Provider: 10/30/20 13:23 History of Present Illness HPI Narrative: 60 yo male w/ h/o htn, pleural effusion presents to the ED to the ED for pleural effusion. He was seen at [facility] on 10/11 for SOB and found to have a large left pleural effusion. He had it drained. He was in the hospital for 6 days and had a significant work-up. He was told that there was no cancer or infection, although he did complete a course of antibiotics. He had follow-up imaging today, which showed that the fluid had come back. He says that he is mildly short of breath. No fever, chest pain. Related Data Home Medications Medication Instructions Recorded Confirmed amlodipine 10 mg PO DAILY 12/06/19 12/06/19 gabapentin 300 mg PO HS 12/06/19 12/06/19 hydralazine 25 mg PO TID 12/06/19 12/06/19 tramadol 50 mg PO TID PRN 12/06/19 12/06/19 Allergies Allergy/AdvReac Type Severity Reaction Status Date / Time No Known Allergies Allergy Verified 10/30/20 13:09 Review of Systems Review of Systems: All systems reviewed & are unremarkable except as noted in HPI and below Constitutional: Constitutional: Denies fever(s) and Denies weakness Cardiovascular: Cardiovascular: Denies chest pain Respiratory: Respiratory: Reports chest congestion and Reports dyspnea Gastrointestinal: Gastrointestinal: Denies abdominal pain, Denies nausea and Denies vomiting Neurologic: Denies weakness PMFSH Past Medical History Medical History Chronic back pain Hypertension Lumbar spondylosis Obesity Surgical History Surgical History History of orthopedic surgery Right knee surgery. Family History Family History Mother Diabetes mellitus Sibling Diabetes mellitus Liver failure Social History Social History Social History: The patient lives in [place] with his . They have 2 grown children. He works for a [employer], in the [employer] department. He designates, [employer], as his surrogate decision maker and he wishes to be a full code. He has a 20 pack year smoking history and quit several years ago. Prior to the last couple of weeks, he consumed almost a 12 pack of beer a night. No drug use. Smoking packs per day: 1 Smoking cigarettes per day: 20.0 Years smoked: 20 Smoking pack-years: 20.00 Gender identity (if verbalized by the patient): Male Spiritual care concerns: No Agree to blood products: Yes Exam Const: General: healthy appearing, no acute distress and alert Orientation/consciousness: patient oriented x3 HENMT: Head: normal to inspection Neck: Neck: normal visual inspection Resp: Effort & Inspection: normal respiratory effort and tachypneic Auscultation: clear to auscultation bilaterally, rales on the left and diminished lung sounds on the left Cardio: Jugular venous distension: no JVD Rate: tachycardic Rhythm: regular rhythm GI: Inspection: non-distended GI Palp: Yes Soft to palpation and No Tenderness to palpation present (GI) Skin: General skin exam: normal color Neuro: General: patient oriented x3, moves all extremities and CN's II-XI intact bilaterally Speech: normal speech Extrem: General: no edema Psych: Appearance: well kempt Affect: normal affect Course Vital Signs Vital signs: Vital Signs Temperature 36.3 C L 10/30/20 13:47 Pulse Rate 110 H 10/30/20 13:47 Respiratory Rate 17 10/30/20 13:47 Blood Pressure 161/80 H 10/30/20 13:47 Pulse Oximetry 97 10/30/20 13:47 Temperature 36.3 C L 10/30/20 13:47 Pulse Rate 99 10/30/20 16:47 Respiratory Rate 28 H 10/30/20 16:47 Blood Pressure 149/86 H 10/30/20 16:47 Pulse
[2020-10-30 14:02] LABS: Basophils Absolute Auto 0.1 K/mm3 (0.0-0.1); Basophils Percent Auto 0.6 % (0.2-1.2); Eosinophils Absolute Auto 0.1 K/mm3 (0-0.3); Eosinophils Percent Auto 0.8 % (0-4.4); Hematocrit 33.4 % (42.0-52.0); Hemoglobin 11.4 g/dL (14.0-18.0); Immature Granulocyte Absolute 0.09 K/mm3 (0.00-0.031); Immature Granulocyte Percent A 0.6 % (0-0.5); Mean Corpuscular HGB Conc 34.1 g/dl (32-36); Mean Corpuscular Hemoglobin 31.8 pg (26-34); Mean Corpuscular Volume 93.3 fl (80-100); Mean Platelet Volume 8.6 fl (7.4-10.4); Monocytes Absolute Auto 1.5 K/mm3 (0.1-0.6); Monocytes Percent Auto 10.3 % (2.6-8.5); Neutrophils Absolute Auto 10.7 K/mm3 (1.3-6.7); Neutrophils Percent Auto 75.7 % (45.5-73.1); Platelet Count Result 587 k/mm3 (150-375); Red Blood Count 3.58 M/mm3 (4.6-6.20); Red Cell Distribution Width 12.6 % (11.5-14.5); White Blood Count 14.1 K/mm3 (4.5-10.0)
[2020-10-30 14:15] LABS: Alanine Aminotransferase 16 U/L (4-50); Albumin Level 3.2 g/dL (3.5-5.1); Alkaline Phosphatase 104 U/L (38-126); Anion Gap 10 mmol/L (8-16); Aspartate Amino Transferase 21 U/L (17-59); Bilirubin,Total 0.6 mg/dL (0.2-1.3); Blood Urea Nitrogen 8 mg/dL (9-20); Calcium 8.8 mg/dL (8.4-10.2); Carbon Dioxide 26 mmol/L (22-30); Chloride 100 mmol/L (98-107); Estimated CRCL calculation 133 ml/min; Estimated Glomerular Filt Rate > 60; Glucose 128 mg/dL (75-110); Potassium 3.5 mmol/L (3.4-5.0); Sodium 136 mmol/L (137-145)
[2020-10-30 14:18] LABS: NT Pro B Type Natriuretic Pept 312 PG/ML (5-100)
[2020-10-30 14:29] LABS: CRP 14.8 mg/dL (<1.0)
[2020-10-30 14:32] LABS: INR 1.2; Prothrombin Time 15.7 Seconds (11.1-14.7)
[2020-10-30 14:33] LABS: Partial Thromboplastin Time 35.4 SECONDS (22.3-36.8)
[2020-10-30 14:34] LABS: Lactic Acid Reflex 1.4 mmol/L (0.7-2.1)
--- NOTE | 2020-10-30 14:50 | PC.NURSE ---
Consent signed for ultrasound guided thoracentesis. Awaiting radiology availability.
--- NOTE | 2020-10-30 15:51 | PC.NURSE ---
Pt to and from ultrasound guided thoracentesis. States is feeling much better and reports was told will be discharged after IV abx admininistered.
== END 2020-10-30 17:00 | disposition home or self-care (01) ==
PROVIDERS: Emergency Medicine; Emergency Provider Emergency Medicine; PCP Internal Medicine
DX: J90 Pleural effusion, not elsewhere classified (principal); I10 Essential (primary) hypertension; E66.9 Obesity, unspecified; Z68.42 Body mass index [BMI] 45.0-49.9, adult; F17.210 Nicotine dependence, cigarettes, uncomplicated; R00.0 Tachycardia, unspecified; I45.9 Conduction disorder, unspecified
CPT/HCPCS: 32555; 36415; 71046; 80053; 83605; 83880; 85025; 85610; 85730; 86140; 87040; 93005; 96365; 96367; 99284; J0456; J0696

== ENCOUNTER 2020-11-04 10:12 | Outpatient (CLI) | payer OTHER, SELFPAY ==
--- NOTE | ~2020-11-04 | XR_ITS ---
EXAMINATION: XR chest 2V DATE: 11/04/2020 10:28 INDICATION: Pleural effusion. TECHNIQUE: Frontal and lateral views of the chest were obtained. COMPARISON: Chest single view 10/30/2020 FINDINGS: A calcified right lung nodule is consistent with old granulomatous disease. There is a larg e left pleural effusion. There are airspace opacities in left lung. No pneumothorax. The heart size i s obscured. IMPRESSION: 1. Stable large left pleural effusion. 2. Stable airspace opacities in left lung, consistent with atelectasis versus pneumonia. Reviewed, dictated and finalized at location A. NCING ANALYST IMPRESSION: 1. Stable large left pleural effusion. 2. Stable airspace opacities in left lung, consistent with atelectasis versus p neumonia.
== END 2020-11-04 10:13 | disposition home or self-care (01) ==
PROVIDERS: PCP Internal Medicine; Visit Provider Internal Medicine
DX: J90 Pleural effusion, not elsewhere classified (principal)
CPT/HCPCS: 71046

== ENCOUNTER 2021-01-09 09:30 | Outpatient (CLI) | payer OTHER, SELFPAY | END 2021-01-09 09:31 | disposition home or self-care (01) | LOC: ANHCOVIDVC 09:30 | PROVIDERS: PCP Internal Medicine | DX: Z23 Encounter for immunization (principal) | CPT/HCPCS: 0001A; 91300 ==

== ENCOUNTER 2021-01-30 09:27 | Outpatient (CLI) | payer OTHER, SELFPAY | END 2021-01-30 09:28 | disposition home or self-care (01) | LOC: ANHCOVIDVC 09:27 | PROVIDERS: PCP Internal Medicine | DX: Z23 Encounter for immunization (principal) | CPT/HCPCS: 0002A; 91300 ==